=== PATIENT | female | born 1980 | race Caucasian/White ===

== ENCOUNTER 2021-08-28 10:23 | Emergency (ER) | payer OTHER ==
[~2021-08-28] VITALS: Ht 175.2 cm; Wt 110.2 kg
[2021-08-28] MEDS ORDERED: ATIVAN0.5 MG PO (10:33)
[2021-08-28] MEDS ORDERED: FLUOXETINE40 MG PO (10:34)
[2021-08-28] MEDS ORDERED: CYCLOBENZAPRINE5 M3 PO (12:34)
== END 2021-08-28 13:00 | disposition home or self-care (01) ==
LOC: ED 10:23
DX: M25.552 Pain in left hip (principal)